=== PATIENT | female | born 1970 | race Caucasian/White ===

== ENCOUNTER 2022-11-19 17:00 | Outpatient (RCR) | payer OTHER, SELFPAY | END 2022-11-19 17:05 | disposition home or self-care (01) | LOC: PT 17:00 | PROVIDERS: Visit Provider Orthopaedic Surgery | DX: M25.561 Pain in right knee (principal); Z96.651 Presence of right artificial knee joint | CPT/HCPCS: 97010; 97014; 97016; 97110; 97112; 97140; 97163; 97164; 97530; G0283 ==

== ENCOUNTER 2023-02-10 10:00 | Outpatient (RCR) | payer OTHER, SELFPAY | END 2023-02-10 11:00 | disposition home or self-care (01) | LOC: PT 10:00 | PROVIDERS: Visit Provider Orthopaedic Surgery | DX: M17.0 Bilateral primary osteoarthritis of knee; Z96.651 Presence of right artificial knee joint; Z96.652 Presence of left artificial knee joint | CPT/HCPCS: 97010; 97014; 97016; 97110; 97112; 97140; 97163; 97164; 97530; G0283 ==

== ENCOUNTER 2024-02-15 04:20 | Emergency (ER) | payer OTHER, SELFPAY ==
[2024-02-15 04:21] VITALS: BP 126/84; PULSE 67; RESP 18; TEMP 36.8; O2SAT 96; BMI 25.7
--- NOTE | 2024-02-15 04:26 | XR_ITS ---
PROCEDURE INFORMATION: Exam: XR Chest Exam date and time: 02/15/2024 5:11 AM Age: 53 years old Clinical indication: Cough; Additional info: Productive cough TECHNIQUE: Imaging protocol: Radiologic exam of the chest. Views: 2 views. COMPARISON: No relevant prior studies available. FINDINGS: Lungs: There are few scattered 2-3 mm granulomas. There is no pulmonary consolidation. Pleural spaces: No pleural effusion. No pneumothorax. Heart/Mediastinum: No cardiomegaly. There is a nonenlarged calcified left hilar lymph node. Bones/joints: Unremarkable. IMPRESSION: No evidence of active pulmonary disease.
--- NOTE | 2024-02-15 04:26 | HMH.EDGENADL ---
Discharge Plan Disposition Patient Disposition: Home, Self-Care Referrals Follow up/Referrals: Provider,Referral, MD [Primary Care Provider] - See instructions Activity Restrictions/Add. Instructions Additional Instructions/Restrictions: Please follow-up with your primary care provider. Please return to the emergency department if you develop any new or worsening symptoms or become concerned for your health. Clinical Impressions Clinical Impression: Upper respiratory infection Instructions Patient Instructions: DI for Acute Bronchitis Print Language Print Language: Kyrgyz Discharge ED Provider: Pérez Kate General Adult HPI General Chief complaint: Upper Respiratory Infection Stated complaint: sore throat, congestion, cough Time Seen by Provider: 02/15/24 04:26 History of Present Illness HPI narrative: 53-year-old female with no significant past medical history presents for cough, congestion, fever. She reports been ongoing since , tonight she had a coughing fit that took a long time to stop. She denies any significant pulmonary history. Reports fever at home. Reports cough is productive of mucus. [facility] Disclaimer: The information contained in this section may have been updated after the patient was seen, as this information can be updated by other users. Social History Smoking Status: Never smoker alcohol intake: never current occupational status: employed Travel in the last 8 weeks: None ROS Obtained: Yes All systems reviewed & no additional complaints except as documented Physical Exam General General appearance: alert and in no apparent distress Head Head exam: atraumatic and normocephalic Eye Eye exam: Present normal appearance, PERRL and EOMI ENT ENT exam: Present normal oropharynx and normal external ear exam Neck Neck exam: Present normal inspection and full ROM Chest Chest inspection: Present normal inspection and symmetric chest wall rise; Absent tenderness Respiratory Respiratory exam: Present normal lung sounds bilaterally; Absent respiratory distress Cardiovascular Cardiovascular exam: Present regular rate and normal rhythm Abdominal Exam Abdominal exam: Present soft; Absent distention, tenderness or guarding Extremities Exam Extremities exam: Present normal inspection; Absent edema or joint swelling Back Exam Back exam: Present normal inspection; Absent tenderness Neurological Exam Neurological exam: Present alert and oriented X3; Absent motor sensory deficit Psychiatric Psychiatric exam: Present normal affect and normal mood Skin Skin exam: Present warm, dry and normal color Lymphatic Lymphatic Findings: no adenopathy Medical Decision Making Medical Records Medical records reviewed: Yes I reviewed the patient's medical records. Screening: Per USPSTF and CDC recommendations, given the prevalence of disease in our region, it is our hospital?s policy to screen for HIV and viral Hepatitis for all patients aged 18 and over and those with ongoing risk factors. Kamari Inquiry Pt receiving controlled substance: No Kamari was queried for this patient: No Vital Signs: 02/15/24 04:21 02/15/24 05:01 02/15/24 05:31 Temperature 98.2 F 98.7 F Temperature Source Oral Oral Pulse Rate 73 70 Pulse Rate [Left] 67 Respiratory Rate 18 18 Blood Pressure 113/75 116/81 Blood Pressure [Right Arm] 126/84 Blood Pressure Mean [Right Arm] 98 Blood Pressure Source Automatic Cuff Blood Pressure Position Supine 02 Sat by Pulse Oximetry 96 95 Oxygen Delivery Method Room Air Room Air Lab Data Lab results reviewed: Yes I reviewed the patient's lab results. Lab Results 02/15/24 04:30: SARS-CoV-2 (PCR) Not detected, Influenza A Untype (PCR) Not detected, Influenza Type B (PCR) Not detected Orders (Tests/Meds): ORDERS Category Date Time Status CXR 2 view (NOT portable) [XR chest 2V] Stat Exams 02/15/24 04:26 Completed Rapid PCR Covid and Flu A/B Stat Lab 02/15/24 04:30 Completed Medical Decision Narrative: 53-year-old female without significant past medical history presents with flulike symptoms since .. History was obtained via interactive discussion with patient, chart review. On arrival, patient is [afebrile, hemodynamically stable, satting appropriately, alert, oriented x4, GCS 15], moving all extremities spontaneously. Full physical exam performed and significant for clear lungs bilaterally Differential includes but is not limited to influenza, URI, viral/bacterial pneumonia. Workup initiated including 2 view chest x-ray, COVID/flu swab.. On re-evaluation, patient [remains afebrile, HD stable.] Laboratory workup independently interpreted by me and significant for negative COVID and flu. Imaging independently interpreted by me and significant for clear lungs bilaterally without evidence of bacterial pneumonia. See radiology read for full review of final results. Given patient history, exam and workup, patient's presentation most likely represents acute viral infection. No evidence of bacterial infection at this time. Patient was discharged in stable condition with return precautions.. Procedures Risk/Benefits of Procedure(s) Were Explained: Yes Critical Care Critical Care Time Critical Care Time: No
[2024-02-15 04:36] LABS: Coronavirus 19, PCR Not Detected (NotDetected); Influenza A, PCR Not Detected (NotDetected); Influenza B, PCR Not Detected (NotDetected)
[2024-02-15 05:01] VITALS: BP 113/75; PULSE 73; O2SAT 95
[2024-02-15 05:31] VITALS: BP 116/81; PULSE 70; RESP 18; TEMP 37.1; O2SAT 97
== END 2024-02-15 05:34 | disposition home or self-care (01) ==
PROVIDERS: Emergency Provider Emergency Medicine
DX: J06.9 Acute upper respiratory infection, unspecified (principal); R05.8 Other specified cough; R09.81 Nasal congestion; R50.9 Fever, unspecified
CPT/HCPCS: 71046; 87636; 99283